=== PATIENT | female | born 1990 | race Two or more races ===

== ENCOUNTER 2021-07-20 16:05 | Emergency (ER) | payer OTHER ==
[~2021-07-20] VITALS: Ht 172.7 cm; Wt 83.5 kg
[2021-07-20] MEDS ORDERED: PERCOCET 5-3251 EACH PO (21:22)
== END 2021-07-20 21:30 | disposition home or self-care (01) ==
LOC: ER 16:05
DX: S62.92XA Unspecified fracture of left hand, initial encounter for closed fracture (principal); X50.9XXA Other and unspecified overexertion or strenuous movements or postures, initial encounter; Y93.89 Activity, other specified; Y92.89 Other specified places as the place of occurrence of the external cause; Y99.8 Other external cause status